=== PATIENT | female | born 1935 | race Caucasian/White ===

== ENCOUNTER 2016-10-02 14:30 | Inpatient (IN) | payer MEDICARE ==
[~2016-10-02] VITALS: Ht 147.3 cm; Wt 29.1 kg
[~2016-10-02 14:30] MED LIST: ATIVAN1 MG PO; CARTIA XT180 MG PO; CYCLOBENZAPRINE5 MG PO; DIFLUCAN150 MG PO; FLORAJEN3 CAPS460 MG PO; FOLATE0.4 MG PO; LASIX20 MG PO; LEVOTHYROXINE112 MCG PO; MUCINEX DM ER1 EAC1 PO; OMNICEF300 MG PO; PLAQUENIL200 MG PO; PREDNISONE5 MG PO; TESSALON PERLE100 MG PO; VITAMIN B-12500 MC1 PO; ZITHROMAX500 MG PO; ZYVOX600 MG PO
[2016-10-02 15:36] LABS: HEMATOCRIT 25.9 % (36.0-48.0); HEMOGLOBIN 8.1 g/dL (12-16); MCHC 31.3 g/dL (31.0-37.0); MCV 92.8 fL (80.0-100.0); RBC 2.79 10x6/uL (4.00-5.40); RDW 17.9 % (11.5-14.5); WBC 41.5 10x3/uL (4.8-10.8)
[2016-10-02 15:38] LABS: ALBUMIN 3.4 g/dL (3.4-5.0); ALKALINE PHOSPHATASE 198 U/L (46-116); ALT (SGPT) 26 U/L (10-68); BILIRUBIN - TOTAL 0.72 mg/dL (0.2-1.3); CALC OSMOLALITY 274 mosm/kg (275-300); CALCIUM 8.2 mg/dL (8.5-10.1); CARBON DIOXIDE 37.1 mmol/L (21.0-32.0); CHLORIDE - SERUM 96 mmol/L (98-107); CREATININE - SERUM 0.6 mg/dL (0.6-1.3); GLUCOSE 79 mg/dL (74-106); PLATELET COUNT 33 10x3/uL (130-400); POTASSIUM - SERUM 4.9 mmol/L (3.5-5.1); PROTEIN - SERUM 6.3 g/dL (6.4-8.2); SODIUM 137 mmol/L (136-145); UREA NITROGEN 17 mg/dL (7-18); eGFR NON AFRICAN AMERICAN > 90 mL/min (90-120)
[2016-10-02 15:49] LABS: PRO BNP 1994 pg/mL (0-450); THYROID STIMULATING HORMONE 9.51 uIU/mL (0.36-3.74)
[2016-10-02 15:53] LABS: TROPONIN-I < 0.017 ng/mL (0.000-0.060)
[2016-10-02 18:12] VITALS: BMI 14.8
[2016-10-02 18:57] LABS: LYMPHOCYTES 25 % (15-50); MONOCYTES 1 % (2-11); NEUTROPHILS 74 % (40-80); PLATELET ESTIMATE DECREASED
--- NOTE | 2016-10-02 19:35 | NUR ---
PT ARRIVED TO FLOOR FROM ER WITH HR OF 155 BP 82/44 AND O2 93% ON 2L PAGED DR VALENZUELA AND INFORMED HIM OF PT HR AND ORDERES RECIVED TO CONSULT CARDIOLOGY AND PAGEZainab TORRES RECIVED ORDER TO START PT ON 5MG/HR CARDIZEM DRIP AND TO WATCH BP IF LOW 70 SYSTOLIC THEN PAGE HIM STARTED DRIP AND MONITOR BP AT THIS TIME
[2016-10-02 20:00] VITALS: BP 83/48
--- NOTE | 2016-10-02 21:54 | NUR ---
PT UNABLE TO RECIVE BREATHING TREATMENT AT THIS TIME DUE TO HR 144 PT ON CARDIZEM DRIP AND BP SUSTANING WITH A SYSTOLIC OF AT LEAST 85 WILL CONTINUE TO MONITOR BP AND HR
--- NOTE | 2016-10-02 23:22 | NUR ---
HR DECREASING 128 PT BP 86/45 AT THIS TIME NO DISTRESS OBSERVED WILL MONITOR
[2016-10-03] VITALS (8 sets, daily range): BP systolic 97–126; BP diastolic 47–69; Ht 147.3 cm; Wt 29.1 kg
[2016-10-03 06:21] LABS: MCH 28.4 pg (26.0-34.0); MCHC 31.2 g/dL (31.0-37.0); MCV 91.3 fL (80.0-100.0); RBC 2.18 10x6/uL (4.00-5.40); WBC 30.3 10x3/uL (4.8-10.8)
[2016-10-03 06:22] LABS: HEMATOCRIT 19.9 % (36.0-48.0); HEMOGLOBIN 6.2 g/dL (12-16)
[2016-10-03 06:23] LABS: PLATELET COUNT 15 10x3/uL (130-400)
[2016-10-03 06:27] LABS: ALKALINE PHOSPHATASE 152 U/L (46-116); ALT (SGPT) 22 U/L (10-68); BILIRUBIN - TOTAL 0.66 mg/dL (0.2-1.3); CALCIUM 7.7 mg/dL (8.5-10.1); CARBON DIOXIDE 33.2 mmol/L (21.0-32.0); CHLORIDE - SERUM 97 mmol/L (98-107); CREATININE - SERUM 0.6 mg/dL (0.6-1.3); POTASSIUM - SERUM 4.6 mmol/L (3.5-5.1); PROTEIN - SERUM 5.6 g/dL (6.4-8.2); SODIUM 137 mmol/L (136-145); eGFR NON AFRICAN AMERICAN > 90 mL/min (90-120)
[2016-10-03 06:30] LABS: CALC OSMOLALITY 276 mosm/kg (275-300); GLUCOSE 57 mg/dL (74-106); UREA NITROGEN 27 mg/dL (7-18)
--- NOTE | 2016-10-03 06:30 | NUR ---
BLOOD STARTED ON PT AT THIS TIME WILL MONITOR HR AND BP DURING ADMINISTRATION CONSENT SIGNED AND TO CHART
[2016-10-03 06:42] LABS: LYMPHOCYTES 17 % (15-50); MONOCYTES 15 % (2-11); NEUTROPHILS 67 % (40-80); PLATELET ESTIMATE DECREASED
--- NOTE | 2016-10-03 07:40 | NUR ---
RECEIVED REPORT, [id number]. CHEST-1 ST UNIT OF BLOOD INFUSING, [id number], DENIES ANY NEEDS AT THIS TIME, CALL LIGHT IN REACH, BED IS LOW, SRX2
--- NOTE | 2016-10-03 14:10 | NUR ---
CM spoke with patient at the bedside. She was alert and oriented x3. She states she was at [facility] prior to admission. She plans to return at discharge. She states she was on isolation at [facility] and was not certain why. She was pleased w/ her care. Reports she is feeling better today. The patient stated she lived at [facility] prior to her illness and hospitalizations. Very pleasant. Thanked CM for visit. Denied any needs at present. TC to [facility]. LUCIANA spoke w/ Ema. The patient was admitted to a Medicare bed on 09/10/16. They are expecting the patient to return to facility. Patient's contact is Veronica Balbuena at [phone] or [phone]. CM to follow to assist w/ discharge. CM advised patient's primary nurse, Enma, about patient' statement regarding isolation. She said she had to have a private room and the nurses wore gowns. Enma will f/u w/ [facility].
--- NOTE | 2016-10-03 15:49 | NUR ---
PT VISITING WITH FAMILY, DENIES ANY NEEDS, CALL LIGHT IN REACH, BED ALARM IS ON
--- NOTE | 2016-10-03 17:43 | NUR ---
DIGOXIN 0.125 MG GIVEN SIVP PT TOLERATED WELL NAD NOTED
[2016-10-03 20:19] LABS: HEMATOCRIT 32.5 % (36.0-48.0); HEMOGLOBIN 10.9 g/dL (12-16); MCH 29.9 pg (26.0-34.0); MCHC 33.5 g/dL (31.0-37.0); RBC 3.65 10x6/uL (4.00-5.40); WBC 32.8 10x3/uL (4.8-10.8)
[2016-10-03 20:20] LABS: PLATELET COUNT 16 10x3/uL (130-400)
[2016-10-03 20:43] LABS: LYMPHOCYTES 12 % (15-50); MONOCYTES 4 % (2-11); NEUTROPHILS 84 % (40-80); PLATELET ESTIMATE DECREASED
--- NOTE | 2016-10-04 03:39 | NUR ---
PT LAYING IN BED EYES CLOSED NO DISTRESS OBSERVED CALL LIGHT IN REACH SRX2 BED LOW AND LOCKED IVP INFUSING CARDIZEM 5MG/HR TELEMETRY READING 112 ST AT THIS TIME
[2016-10-04 04:04] VITALS: BP 113/75
[2016-10-04 05:27] LABS: HEMATOCRIT 33.1 % (36.0-48.0); MCH 29.9 pg (26.0-34.0); MCHC 33.2 g/dL (31.0-37.0); MCV 89.9 fL (80.0-100.0); RBC 3.68 10x6/uL (4.00-5.40); RDW 16.3 % (11.5-14.5); WBC 29.6 10x3/uL (4.8-10.8)
[2016-10-04 05:28] LABS: PLATELET COUNT 15 10x3/uL (130-400)
[2016-10-04 05:34] LABS: ALKALINE PHOSPHATASE 134 U/L (46-116); ALT (SGPT) 18 U/L (10-68); BILIRUBIN - TOTAL 0.54 mg/dL (0.2-1.3); CALCIUM 8.2 mg/dL (8.5-10.1); CARBON DIOXIDE 32.8 mmol/L (21.0-32.0); CHLORIDE - SERUM 101 mmol/L (98-107); GLUCOSE 85 mg/dL (74-106); PROTEIN - SERUM 5.9 g/dL (6.4-8.2); SODIUM 139 mmol/L (136-145)
[2016-10-04 05:36] LABS: CALC OSMOLALITY 278 mosm/kg (275-300); CREATININE - SERUM 0.4 mg/dL (0.6-1.3); UREA NITROGEN 17 mg/dL (7-18); eGFR NON AFRICAN AMERICAN > 90 mL/min (90-120)
[2016-10-04 06:09] LABS: EOSINOPHILS 1 % (0-7); LYMPHOCYTES 11 % (15-50); MONOCYTES 3 % (2-11); NEUTROPHILS 67 % (40-80)
[2016-10-04 06:10] LABS: PLATELET ESTIMATE DECREASED; PLATELET MORPHOLOGY GIANT PLTS PRESENT
--- NOTE | 2016-10-04 07:00 | NUR ---
RECEIVED REPORT. ASSUMED CARE OF PATIENTS. CALL LIGHT WITHIN REACH. PATIENT IS ST 116 ON TELEMETRY. CARDIZEM INFUSING ORDERED. RESTING WELL WITH EYES CLOSED. RESP EVEN AND UNLABORED. NO ACUTE DISTRESS. FULL BED ALARM ON AT THIS TIME.
[2016-10-04 07:56] VITALS: BP 115/54
--- NOTE | 2016-10-04 11:17 | NUR ---
PLATELET INFUSION STARTED AT THIS TIME. NO DISTRESS.
[2016-10-04 11:31] VITALS: BP 132/60
[2016-10-04 11:37] VITALS: BP 108/60
--- NOTE | 2016-10-04 12:18 | NUR ---
PLATELETS COMPLETED TRANSFUSING AT 1215. PATIENT HAS NO S/S OF REACTION. RESTING IN BED, EASILY AROUSED. RESP EVEN AND UNLABORED. NO DISTRESS.
[2016-10-04 15:40] VITALS: BP 119/62
--- NOTE | 2016-10-04 16:00 | NUR ---
PATIENT WITH EYES OPEN. CALL LIGHT WITHIN REACH. NO DISTRESS. FAMILY AT BEDSIDE.
--- NOTE | 2016-10-04 18:10 | NUR ---
LINEN CHANGE, TURNED AND REPOSITIONED BY THIS OYSTER CULTURIST AND PHYSICAL THERAPIST CENTER MANAGER. PATIENT TURNED TO LEFT LATERAL SIDE. CALL LIGHT WITHIN REACH. NO DISTRESS.
--- NOTE | 2016-10-04 20:00 | NUR ---
RESTING IN BED. EYES CLOSED. RESPS EVEN/NONLABORED WITH O2 @ 3L/NC. CARDIZEM AT 5ML/HR INFUSING TO LEFT CHEST WALL PORT. PT ON ISOLATION FOR VRE OF URINE. TURNED EVERY 2 HOURS TO MAINTAIN OPTIMAL SKIN INTEGRITY AND CHECK FOR INCONTINENCE. SEE ASSESSMENT. CPCO.
[2016-10-04 20:57] VITALS: BP 131/52
--- NOTE | 2016-10-04 21:34 | NUR ---
HS MEDS GIVEN. READIED FOR BED. CALL LIGHT IN REACH. CARDIZEM DRIP INFUSING.
--- NOTE | 2016-10-04 23:07 | NUR ---
PERSONAL CARE PROVIDED AND PT NOW SAYS SHE IS GOING TO SLEEP. IV CARDIZEM @ 5ML/HR INFUSING. ST/109 PER TELEMETRY. ASSISTING PT TO TURN FROM SIDE TO SIDE. CPOC.
[2016-10-05 00:34] VITALS: BP 128/66
--- NOTE | 2016-10-05 02:19 | NUR ---
RESTING IN BED WITH NO DISTRESS. IV CARDIZEM INFUSING. ST PER TELEMETRY. CPOC.
[2016-10-05 04:31] VITALS: BP 114/58
--- NOTE | 2016-10-05 06:00 | NUR ---
PT CLEAN/DRY AND RESTING. IV CARDIZEM INFUSING AT 5ML/HR. STILL ST PER TELEMETRY. CPOC.
[2016-10-05 06:27] LABS: ALKALINE PHOSPHATASE 132 U/L (46-116); ALT (SGPT) 18 U/L (10-68); CALCIUM 7.9 mg/dL (8.5-10.1); CARBON DIOXIDE 33.6 mmol/L (21.0-32.0); CHLORIDE - SERUM 101 mmol/L (98-107); CREATININE - SERUM 0.4 mg/dL (0.6-1.3); GLUCOSE 93 mg/dL (74-106); SODIUM 141 mmol/L (136-145); eGFR NON AFRICAN AMERICAN > 90 mL/min (90-120)
[2016-10-05 06:30] LABS: CALC OSMOLALITY 279 mosm/kg (275-300); UREA NITROGEN 10 mg/dL (7-18)
[2016-10-05 07:07] LABS: HEMATOCRIT 33.9 % (36.0-48.0); HEMOGLOBIN 10.8 g/dL (12-16); MCH 29.6 pg (26.0-34.0); MCHC 31.9 g/dL (31.0-37.0); MCV 92.9 fL (80.0-100.0); RBC 3.65 10x6/uL (4.00-5.40); RDW 17.1 % (11.5-14.5); WBC 31.3 10x3/uL (4.8-10.8)
[2016-10-05 07:08] LABS: PLATELET COUNT 38 10x3/uL (130-400)
[2016-10-05 07:19] LABS: ANISOCYTOSIS OCC; EOSINOPHILS 1 % (0-7); HYPOCHROMASIA OCC; LYMPHOCYTES 17 % (15-50); MONOCYTES 19 % (2-11); NEUTROPHILS 49 % (40-80); PLATELET ESTIMATE DECREASED; ROULEAUX 1+
[2016-10-05 07:40] VITALS: BP 129/51
--- NOTE | 2016-10-05 08:05 | NUR ---
ASSESSMENT DONE. PT SLEEPING. EASILY AROUSED. DENIES NEEDS. DR. VALENZUELA HERE AND SAW PT. NO NEW ORDERS RECEIVED AT THIS TIME. WAS NOTIFIED OF PLT COUNT OF 38. THIS IS A CHRONIC PROBLEM AND DR. ALBARRAN IS ON PT'S CASE. CALL LIGHT WITH IN REACH. WILL CONT. TO MONITOR.
--- NOTE | 2016-10-05 09:29 | NUR ---
RESTS IN ISOLATION ROOM. IV PATENT. CALL LIGHT IN REACH. WILL MONITOR NEEDS.
--- NOTE | 2016-10-05 09:29 | NUR ---
Nutrition follow-up: Diet: Low sodium PO intake ~40% of meals Labs reviewed +BM Wt: 74# PO intake is still poor. Nutritional supplements ordered. Will continue to encourage increased po intake Recommend liberalizing diet to regular as tolerated due to poor po intake RDN following.
[2016-10-05 11:48] VITALS: BP 105/49
[2016-10-05 16:18] VITALS: BP 112/55
[2016-10-05 16:56] LABS: APPEARANCE CLEAR (CLEAR); BACTERIA FEW /hpf (NONE SEEN); BILIRUBIN NEGATIVE (NEGATIVE); COLOR DK YELLOW (YELLOW); EPITHELIAL CELLS 0-5 /hpf (0-5); GLUCOSE NEGATIVE (NEGATIVE); KETONE NEGATIVE (NEGATIVE); LEUKOCYTE ESTERASE TRACE (NEGATIVE); MUCUS >1+ /lpf (NONE SEEN); NITRITE NEGATIVE (NEGATIVE); PROTEIN TRACE mg/dL (NEGATIVE); RED CELLS - URINE 0-5 /hpf (0-5); SPECIFIC GRAVITY 1.015 (1.005-1.020); UROBILINOGEN NORMAL (NORMAL)
--- NOTE | 2016-10-05 17:57 | NUR ---
PT SITTING UP IN BED WATCHING TV. NO DISTRESS NOTED. DENIES NEEDS. CALL LIGHT WITH IN REACH. WILL CONT. TO MONITOR.
--- NOTE | 2016-10-05 20:00 | NUR ---
RESTING IN BED AND WATCHING TV. ALERT/ORIENTED. LEFT CHEST WALL PORT. SR PER TELEMETRY. MIN PATENT TO BEDSIDE DRAIN BAG. SEE ASSESSMENT. CPOC.
[2016-10-05 22:01] VITALS: BP 122/54
--- NOTE | 2016-10-05 22:24 | NUR ---
HS MEDS GIVEN. NEW BAG OF CARDIZEM AT 5ML/HR STARTED. REMOVED OLD DRESSING TO LEFT OUTER KNEE/UPPER BONE AREA AND CLEANSED AREA THAT IS AN ABRASION/SKIN TEAR THAT PT SAID HAS BEEN HIT SEVERAL TIMES KEEPING IT FROM HEALING. APPLIED WET TO DRY DRESSING BACK AND SECURED WITH TEGADERM. WILL MONITOR.
[2016-10-06 05:33] VITALS: BP 136/62
--- NOTE | 2016-10-06 07:53 | NUR ---
0715-AM ROUNDING MADE, PATIENT IS RESTING WITH EYES CLOSED. RESP ARE EVEN AND NON LABORED. PATIENT IS IN CONTACT ISOLATION FOR VRE URINE PER NIGHT NURSE. RENAY BRAUN IS SEEING INFUSING TO LEFT IP AT 5 CC/HR. ON HEART MONITOR SHOWING SR, HR 72. ON ROOM AIR. MIN CATH SEEN WITH YELLOW URINE. WILL CONTINUE TO MONITOR.
[2016-10-06 08:00] VITALS: BP 140/71
--- NOTE | 2016-10-06 10:08 | NUR ---
MEPILEX LITE X 2 PLACED TO SPINE AREA OVER THE REDDENED AREAS. MEPLIEX SMALL SACRUM PLACED ON RED AREA OF COCCYX. ALL THESE ARE DATED.
[2016-10-06 12:00] VITALS: BP 116/48
--- NOTE | 2016-10-06 14:32 | NUR ---
NM TO CALL AND STATE THEY NEED TO ORDER THE DOSE AND TEST WILL BE DONE IN THE AM. THERE IS NO RESTRICTIONS PER THEM.
--- NOTE | 2016-10-06 14:48 | NUR ---
NM TO CALL BACK AND TELL ME THAT THE DOSE WILL BE HERE TODAY FOR SCAN. THIS IS RELAYED TO THE PATIENT.
[2016-10-06 15:53] LABS: HEMATOCRIT 35.2 % (36.0-48.0); MCH 29.9 pg (26.0-34.0); MCHC 31.3 g/dL (31.0-37.0); MCV 95.7 fL (80.0-100.0); RBC 3.68 10x6/uL (4.00-5.40); RDW 17.4 % (11.5-14.5); WBC 25.4 10x3/uL (4.8-10.8)
[2016-10-06 15:54] LABS: PLATELET COUNT 37 10x3/uL (130-400)
[2016-10-06 16:00] VITALS: BP 120/62
--- NOTE | 2016-10-06 16:28 | NUR ---
1625-TO NM VIA BED FOR SCAN.
[2016-10-06 16:43] LABS: LYMPHOCYTES 17 % (15-50); MONOCYTES 2 % (2-11); NEUTROPHILS 74 % (40-80); PLATELET ESTIMATE DECREASED
--- NOTE | 2016-10-06 16:48 | NUR ---
RETURNS FROM NM.
[2016-10-06 20:00] VITALS: BP 114/56
--- NOTE | 2016-10-06 21:17 | NUR ---
HS MEDS GIVEN WITH FRESH ICE WATER.
--- NOTE | 2016-10-06 23:45 | NUR ---
RESTING IN BED WITH EYES CLOSED, RESPERATIONS EVEN, NO S/S DISTRESS NOTED.
[2016-10-07] VITALS: BP 129/71; BP 142/59
--- NOTE | 2016-10-07 00:26 | NUR ---
ASSISTANT CHIEF ENGINEER AT BEDSIDE TO OBTAIN VITALS, CALL LIGHT IN REACH. WILL CONTINUE WITH PLAN OF CARE.
[2016-10-07 08:00] VITALS: BP 115/80
--- NOTE | 2016-10-07 11:00 | NUR ---
ALERT AND ORIENTED X4. SITTING UP IN BED. MIN DRAINING AT BEDSIDE. CARDIZEM DRIP DISCONTINUED PER ORDER. UNCONTROLLED A-FIB 126bpm ON TELEMETRY. DENIES SOB OR PAIN. CONTINUE PLAN OF CARE AND SAFETY PRECAUTIONS.
--- NOTE | 2016-10-07 11:19 | NUR ---
Nutrition Follow Up: Chart reviewed. Diet: Regular PO Intake: 50% (9 meal avg) I>O +BM 10/03/16 - no BM x 5 days Wt loss 3# since admit Meds: Prednisone, Folic Acid Labs noted Pt's appetite is slowly improving. Will send Ensure with meals. Rec continue current diet. Pt may benefit from an appetite stimulant. RD following.
[2016-10-07 12:00] VITALS: BP 101/51
--- NOTE | 2016-10-07 18:32 | NUR ---
SLEEPING IN BED. NO CHANGE. REMAINS FREE FROM INJURY. UNCONTROLLED A-FIB ON TELEMETRY. BED LOCKED AND LOW. CALL LIGHT IN REACH. TWO SIDERAILS UP. BED ALARM ON.
--- NOTE | 2016-10-07 19:05 | NUR ---
AWAKE TALKING ON PHONE. DENIES PAIN OR ANY NEEDS. IN CONTACT ISOLATION FOR VRE IN URINE. L CHEST IP INTACT SL. 02 AT 2L. RR 18 EVEN U/L. TELEMETRY SHOWS 124 UNCAFIB. ORIENTED TO CALL LIGHT FOR ANY NEEDS OR DISCOMFORTS.
--- NOTE | 2016-10-07 21:00 | NUR ---
ADMIN SCHED MEDS WITH SIPS OF WATER. NO OTHER NEEDS VOICED.
[2016-10-07 22:35] VITALS: BP 129/72
[2016-10-08 01:32] VITALS: BP 112/64
[2016-10-08 05:59] VITALS: BP 125/73
--- NOTE | 2016-10-08 06:11 | NUR ---
AWAKE. ADMIN SCHED MEDS WITH SIPS OF WATER. ASSISTED WITH REPOSITIONING UP IN BED.
[2016-10-08 07:41] LABS: HEMATOCRIT 36.5 % (36.0-48.0); HEMOGLOBIN 11.5 g/dL (12-16); MCH 29.7 pg (26.0-34.0); MCHC 31.5 g/dL (31.0-37.0); MCV 94.3 fL (80.0-100.0); RBC 3.87 10x6/uL (4.00-5.40); RDW 17.5 % (11.5-14.5); WBC 31.4 10x3/uL (4.8-10.8)
--- NOTE | 2016-10-08 07:42 | NUR ---
AM ROUNDING- PT LAYING IN BED ON LEFT SIDE SLEEPING. NO NEED AT THIS TIME. IN CONTACT ISOLATION FOR VRE IN URINE. IV SEEN TO LEFT CHEST WITH INFUSAPORT, SALINE LOCKED AND PATENT. ON 02 VIA NC AT 2L. MIN WITH CONCENTRATED URINE SEEN. UP WIHT ASSIST. PER REPORT FROM BILL POSTER INSTALLER NURSE CHERYL PT HAS HX OF THROMBOCYTOPENIA. DNR. ON MONITOR SHOWING UNCONTROLLED A-FIB, HR 112. 0744- LAB CALLED WITH [facility]. PTS PLATELET COUNT IS 20. CRITICAL LAB SHEET FILLED OUT. WILL CONTINUE TO MONITOR.
[2016-10-08 07:43] LABS: PLATELET COUNT 20 10x3/uL (130-400)
[2016-10-08 07:59] LABS: CALC OSMOLALITY 281 mosm/kg (275-300); CARBON DIOXIDE 35.9 mmol/L (21.0-32.0); CHLORIDE - SERUM 101 mmol/L (98-107); CREATININE - SERUM 0.4 mg/dL (0.6-1.3); DIGOXIN 2.01 ng/mL (0.90-2.00); GLUCOSE 86 mg/dL (74-106); POTASSIUM - SERUM 3.5 mmol/L (3.5-5.1); SODIUM 141 mmol/L (136-145); UREA NITROGEN 19 mg/dL (7-18); eGFR NON AFRICAN AMERICAN > 90 mL/min (90-120)
[2016-10-08 08:00] VITALS: BP 134/68
[2016-10-08 08:22] LABS: EOSINOPHILS 1 % (0-7); LYMPHOCYTES 17 % (15-50); MONOCYTES 1 % (2-11); NEUTROPHILS 66 % (40-80); PLATELET ESTIMATE DECREASED
[2016-10-08 12:33] VITALS: BP 128/78
[2016-10-08 16:00] VITALS: BP 112/64
--- NOTE | 2016-10-08 16:04 | NUR ---
CALLED TO PTS ROOM FOR PT C/O MIN CATHETER LEAKING. CHECKED BALLOON, PULLED OUT 10CC OF FLUID AND PLACED 10CC BACK INTO BALLOON. FLUSHED CATHETER WITH 20CC OF SALINE FLUSH WITH ASSISTANCE FROM SABINE WALDROP. CHANGED PT LINEN AND INFORMED HER TO NOTIFY STAFF IT IT HAPPENS AGAIN. WILL CONTINUE TO MONITOR.
--- NOTE | 2016-10-08 17:09 | NUR ---
CHANGED PTS DRESSING TO LOWER LEFT LEG AREA. SKIN TEAR SEEN WITH DRIED BLOOD. APPERARS TO BE HEALING. MEASUREMENTS ARE 2CM X 0.5CM. COVERED WITH 2X2 GAUZE PADS AND SECURED WITH TEGADERM. WILL CONTINUE TO MONITOR.
--- NOTE | 2016-10-08 18:26 | NUR ---
PT SITTING UP IN BED READING A MAGAZINE. DENIES ANY NEED AT THIS TIME. WILL CONTINUE TO MONITOR.
--- NOTE | 2016-10-08 19:10 | NUR ---
ALERT/AWAKE DENIES PAIN OR ANY NEEDS. L CHEST IP INTACT SL. MIN INTACT/PATENT. ORIENTED TO CALL LIGHT FOR ANY NEEDS.
[2016-10-08 20:30] VITALS: BP 109/66
--- NOTE | 2016-10-08 23:19 | NUR ---
ASSISTED WITH REPOSITIONING TO RIGHT SIDE WITH PILLOW TO BACK. REQUESTED LIGHTS OFF TO SLEEP.
[2016-10-09 00:30] VITALS: BP 137/60
--- NOTE | 2016-10-09 02:30 | NUR ---
RECEIVING RESP UPDRAFT TX. DENIES ANY NEEDS OR DISCOMFORTS.
[2016-10-09 04:30] VITALS: BP 142/84
[2016-10-09 07:09] LABS: HEMATOCRIT 34.1 % (36.0-48.0); HEMOGLOBIN 10.8 g/dL (12-16); MCH 29.9 pg (26.0-34.0); MCHC 31.7 g/dL (31.0-37.0); MCV 94.5 fL (80.0-100.0); RBC 3.61 10x6/uL (4.00-5.40); RDW 17.5 % (11.5-14.5); WBC 33.1 10x3/uL (4.8-10.8)
[2016-10-09 07:10] LABS: PLATELET COUNT 26 10x3/uL (130-400)
[2016-10-09 07:12] LABS: EOSINOPHILS 2 % (0-7); LYMPHOCYTES 19 % (15-50); MONOCYTES 2 % (2-11); NEUTROPHILS 65 % (40-80)
[2016-10-09 07:13] LABS: CALC OSMOLALITY 279 mosm/kg (275-300); CALCIUM 7.9 mg/dL (8.5-10.1); CARBON DIOXIDE 35.2 mmol/L (21.0-32.0); CHLORIDE - SERUM 101 mmol/L (98-107); CREATININE - SERUM 0.4 mg/dL (0.6-1.3); GLUCOSE 77 mg/dL (74-106); PLATELET ESTIMATE DECREASED; POTASSIUM - SERUM 3.6 mmol/L (3.5-5.1); SODIUM 140 mmol/L (136-145); UREA NITROGEN 18 mg/dL (7-18); eGFR NON AFRICAN AMERICAN > 90 mL/min (90-120)
[2016-10-09 07:20] LABS: DIGOXIN 2.54 ng/mL (0.90-2.00)
--- NOTE | 2016-10-09 07:45 | NUR ---
RESTING QUIETLY NAD NOTED
[2016-10-09 09:00] VITALS: BP 109/65
[2016-10-09] MEDS ORDERED: PREDNISONE20 MG PO (11:55)
[2016-10-09] MEDS ORDERED: PROTONIX40 MG PO (11:55)
[2016-10-09 11:58] VITALS: BP 114/56
--- NOTE | 2016-10-09 14:18 | NUR ---
IV DCD. IP FLUSHED. MIN CATH DCD. AWAITING TRANSPORTATION
--- NOTE | 2016-10-09 18:45 | NUR ---
late Entry 1200 DR Vargas advised patient could be discharged back to facility. TC to [facility]. CM spoke with Nicol. She had to notify public service administrator for patient to be accepted. Cm received CB w/ multiple questions regarding transportation, the port, oxygen and medications. Cm advised them to speak w/ DR Vargas. Sania ,the primary nurse, had provided report. Port was flushed w/ Heparin. the patient has been on oxygen via n/c at 1.5- 2/l min. She was on room air the afternoon. CM faxed discharge medication list. Cm finally received acceptance. [place] arranged transportation. Will need to follow up w/ billing on Monday regarding type of bed patient into which the patient is being admitted. Chart copy provided.
== END 2016-10-09 15:00 | DRG 308 ==
LOC: D.ER 14:30 → D.M2 17:32 → D.SDCHOLD 10-05 15:11 → D.M2 10-09 15:00
PROVIDERS: Family Medicine; Internal Medicine Hematology & Oncology; ADMIT Family Medicine
DX: I47.1 Supraventricular tachycardia (principal); E43 Unspecified severe protein-calorie malnutrition; Z68.1 Body mass index [BMI] 19.9 or less, adult; D46.9 Myelodysplastic syndrome, unspecified; I95.9 Hypotension, unspecified; M32.9 Systemic lupus erythematosus, unspecified; K21.9 Gastro-esophageal reflux disease without esophagitis; I10 Essential (primary) hypertension; I25.10 Atherosclerotic heart disease of native coronary artery without angina pectoris; E03.9 Hypothyroidism, unspecified; D69.6 Thrombocytopenia, unspecified; Z66 Do not resuscitate; M81.0 Age-related osteoporosis without current pathological fracture; Z86.73 Personal history of transient ischemic attack (TIA), and cerebral infarction without residual deficits; Z87.891 Personal history of nicotine dependence

== ENCOUNTER 2016-11-22 10:16 | Outpatient (CLI) | payer MEDICARE ==
[~2016-11-22] VITALS: Ht 147.3 cm; Wt 27.3 kg
[~2016-11-22 10:16] MED LIST changes: +PREDNISONE20 MG PO; +PROTONIX40 MG PO
[2016-11-22 12:21] VITALS: BP 123/57; Ht 147.3 cm; Wt 27.3 kg
--- NOTE | 2016-11-22 17:49 | NUR ---
1340- LEFT CHEST INFUSAPORT ACCESSED WITH STERILE TECHNIQUE. PT TOLERATED. FINISHED WITH LUNCH AT THIS TIME. 1345- FIRST PRBC UNIT TRANSFUSING. WILL MONITOR.
--- NOTE | 2016-11-22 18:34 | NUR ---
1445 RECEIVED PT FROM ELIZABETH NGUYEN RN. PT RECEIVING BLOOD VIA INFUSAPORT AT 150/CC/HR. DENIES PROBLEMS, DENIES REQUESTS AT PRESENT. O2 AT 3L/NC.SEE MONITORING VS SHEET. 1640 BLOOD HAS COMPLETED, DENIES PROBLEMS, LINE BEING FLUSHED WITH NS. 1648 2ND UNIT CHECKED AT BEDSIDE BY THIS NURSE AND ELIZABETH NGUYEN RN INITIATED BY ALARIS PUMP AT 50/CC/HR 1710 RATE INCREASED TO 125/CC/HR DENIES NEEDS REG DIET ORDERED. 1725 RATE INCREASED TO 175/CC/HR DENIES NEEDS NO PROBLEMS NOTED, BLOOD PATENT VIA PORT. [address] [place] CALLED TO CHECK ON PT. ARRANGEMENT MADE FOR TRANSPORTATION BACK TO NURSING FACILITY. REG SUPPER DIET SERVED. PT. DENIES PROBLEMS.
--- NOTE | 2016-11-22 20:49 | NUR ---
1944 LINE HAS FLUSHED, PORT FLUSHED WITH NS AND HEPARIN PER LUCILA GARCIA DC'D INTACT 1999 PT DRESSED AND AT DESK AWAITING [facility] [address] [facility] TRANSPORT[facility] HAS ARRIVED, TO THEIR FACILITY BY BUS, PT IN HER OWN WC, O2 AT 3L NC. PT. DENIED PROBLEMS WITH TRANSFUSION.
== END 2016-11-22 20:30 | disposition home or self-care (01) ==
LOC: D.OPS
DX: D64.9 Anemia, unspecified (principal)

== ENCOUNTER 2016-12-13 10:13 | Inpatient (IN) | payer MEDICARE ==
[~2016-12-13] VITALS: Ht 147.3 cm; Wt 27.2 kg
[2016-12-13 11:09] LABS: ALBUMIN 2.9 g/dL (3.4-5.0); ALKALINE PHOSPHATASE 130 U/L (46-116); ALT (SGPT) 21 U/L (10-68); BILIRUBIN - TOTAL 0.36 mg/dL (0.2-1.3); CALC OSMOLALITY 286 mosm/kg (275-300); CALCIUM 8.4 mg/dL (8.5-10.1); CHLORIDE - SERUM 103 mmol/L (98-107); CREATININE - SERUM 0.3 mg/dL (0.6-1.3); GLUCOSE 106 mg/dL (74-106); POTASSIUM - SERUM 3.7 mmol/L (3.5-5.1); PRO BNP 1338 pg/mL (0-450); PROTEIN - SERUM 5.6 g/dL (6.4-8.2); SODIUM 144 mmol/L (136-145); TROPONIN-I < 0.017 ng/mL (0.000-0.060); UREA NITROGEN 13 mg/dL (7-18); eGFR NON AFRICAN AMERICAN > 90 mL/min (90-120)
[2016-12-13 11:17] LABS: HEMATOCRIT 28.8 % (36.0-48.0); HEMOGLOBIN 9.1 g/dL (12-16); MCH 30.1 pg (26.0-34.0); MCHC 31.6 g/dL (31.0-37.0); MCV 95.4 fL (80.0-100.0); RBC 3.02 10x6/uL (4.00-5.40); RDW 18.1 % (11.5-14.5); WBC 35.7 10x3/uL (4.8-10.8)
[2016-12-13 11:18] LABS: PLATELET COUNT 34 10x3/uL (130-400)
[2016-12-13 11:41] LABS: ANISOCYTOSIS OCC; LYMPHOCYTES 10 % (15-50); MONOCYTES 9 % (2-11); NEUTROPHILS 62 % (40-80); PLATELET ESTIMATE DECREASED
[2016-12-13] MEDS ORDERED: PREDNISONE5 MG PO (16:17)
[2016-12-13] MEDS ORDERED: PLAQUENIL200 MG PO (16:18)
[2016-12-13] MEDS ORDERED: CYCLOBENZAPRINE5 MG PO (16:26)
[2016-12-13 16:30] VITALS: BP 113/54
[2016-12-13 16:38] VITALS: BP 131/56; BMI 12.5
--- NOTE | 2016-12-13 17:32 | NUR ---
STATUS REMAINS UNCHGD AT PRESENT.
--- NOTE | 2016-12-13 19:30 | NUR ---
RECIEVED SHIFT REPORT. PT IS LYING IN BED. ALERT AND ORIENTED AND ABLE TO VERBALIZE NEEDS. IV IS PATENT AND SALINE LOC AT THIS TIME. O2 @ 2 PER NASAL CANNULA. PT DENIES ANY PAIN AT THIS TIME. PT REQUIRES ASSISTANCE TURNING IN BED FOR COMFORT AND SKIN CARE. NO NEEDS ARE VERBALIZED AT THIS TIME. WILL CONTINUE TO MONITOR. SIDE RAILS ARE UP X 2. BED IS IN LOWEST POSITION. CALL LIGHT IS WITHIN REACH.
[2016-12-13 21:00] VITALS: BP 114/63
--- NOTE | 2016-12-13 21:36 | NUR ---
SHIFT ASSESSMENT COMLETED. NIGHT MEDS GIVEN WITH NO PROBLEMS. NO NEEDS ARE VOICED. WILL MONITOR. SIDE RAILS X 2. BED LOW. CALL LIGHT IN REACH.
[2016-12-14 01:00] VITALS: BP 122/60
[2016-12-14 05:00] VITALS: BP 134/73
[2016-12-14 06:57] LABS: CALC OSMOLALITY 286 mosm/kg (275-300); CALCIUM 8.4 mg/dL (8.5-10.1); CHLORIDE - SERUM 103 mmol/L (98-107); GLUCOSE 80 mg/dL (74-106); POTASSIUM - SERUM 3.8 mmol/L (3.5-5.1); SODIUM 145 mmol/L (136-145); UREA NITROGEN 11 mg/dL (7-18)
[2016-12-14 06:59] LABS: CREATININE - SERUM 0.4 mg/dL (0.6-1.3); eGFR NON AFRICAN AMERICAN > 90 mL/min (90-120)
--- NOTE | 2016-12-14 07:30 | NUR ---
RECIEVED PT DURING WALKING ROUNDS. PT RESTING COMFORTABLY IN BED WITH NO COMPLAINTS OF PAIN OR DISCOMFORT AT THIS TIME. ASSESSMENT DONE PER FLOWSHEET. BED IN LOW POSITION AND CALL LIGHT WITHIN REACH. WILL CONTINUE TO MONITOR.
[2016-12-14 07:39] LABS: HEMATOCRIT 30.3 % (36.0-48.0); HEMOGLOBIN 9.1 g/dL (12-16); MCH 29.3 pg (26.0-34.0); MCV 97.4 fL (80.0-100.0); RBC 3.11 10x6/uL (4.00-5.40); RDW 18.5 % (11.5-14.5); WBC 44.7 10x3/uL (4.8-10.8)
[2016-12-14 07:41] LABS: PLATELET COUNT 36 10x3/uL (130-400)
[2016-12-14 08:00] LABS: EOSINOPHILS 2 % (0-7); LYMPHOCYTES 11 % (15-50); MONOCYTES 3 % (2-11); NEUTROPHILS 70 % (40-80); PLATELET ESTIMATE DECREASED
[2016-12-14 08:01] LABS: ANISOCYTOSIS 1+; POIKILOCYTOSIS 1+; SCHISTOCYTES OCC
--- NOTE | 2016-12-14 08:25 | NUR ---
PT COMPLAINS OF HAVING SOME DIFFICULTY BREATHING, O2 SAT 99% ON 2L. HELPED PT SIT UP AT THIS TIME AND TAKE DEEP BREATHS. PT WAS ABLE TO SLOW BREATHING AND HAVE RELIEF. BED IN LOW POSITION AND CALL LIGHT WITHIN REACH. WILL CONTINUE TO MONITOR.
--- NOTE | 2016-12-14 10:38 | NUR ---
CHANGED DRESSING TO PT BOTTOM AT THIS TIME. PT TOLERATED WELL. BED IN LOW POSITION AND CALL LIGHT WITHIN REACH. WILL CONTINUE TO MONITOR.
[2016-12-14 11:04] VITALS: BP 118/64
[2016-12-14 11:08] VITALS: Ht 147.3 cm; Wt 27.2 kg
--- NOTE | 2016-12-14 11:50 | NUR ---
CALL PLACED TO DR. SCHMIDT AT THIS TIME DUE TO PT EXPERIENCING PAIN IN HER BACK AND BUTTOCK. RECIEVED ORDER FOR TYLENOL. WILL ADMINISTER PER ORDER.
[2016-12-14 11:52] VITALS: BP 114/46
--- NOTE | 2016-12-14 16:00 | NUR ---
Patient Name: BONNY HERNÁNDEZ Admission Status: ER Accout number: [id number] Admission Date: 12-13-2016 : 1936 Admission Diagnosis:UNSPECIFIED BACTERIAL PNEUMONIA Attending: ESTHER Current LOS: 1 Anticipated DC Date: 12-16-2016 Planned Disposition: Nursing Facility [facility] Cert Primary Insurance: MEDICARE A & B Discharge Planning Comments: CM MET WITH PATIENT REGARDING D/C NEEDS AND PLANS. PATIENT STATED SHE IS FROM [facility]. PATIENT IS ON 02 AT FACILITY AND USES A WALKER (VERY LITTLE) AND A WHEELCHAIR (MOST OF TIME) PER FACILITY. PATIENTS PCP IS DR. VALENZUELA AND PHARMACY IS [facility]. PATIENT WILL RETURN THERE AT DISCHARGE. CM WILL CONTINUE TO FOLLOW PATIENT WITH D/C NEEDS AND PLANS. PCP DR. VALENZUELA [facility] JOANN (DAUGHTER) [phone] Clarification Operator: Elvie Coreas How many steps to enter\exit or inside your home? 0 0 * PCP DR. VALENZUELA 0 * [facility] 0 * Preadmission Environment Refrigerating Oiler Usp 0 * Facility Name [facility] 0 * ADLs Partial Dependent 0 * Partial ADLs (Assistance needed) Ambulation Bathing Dressing Medication Management Toileting Transfers 0 * Equipment Bedside [facility] Bed Oxygen Shower Chair Walker Wheelchair 0 * List name and contact numbers for known caregivers / representatives who currently or will assist patient after discharge: JOANN (DAUGHTER) [phone] 0 * Community resources currently utilized None 0 * Additional services required to return to the preadmission environment? Yes 0 * Can the patient safely return to the preadmission environment? Yes 0 * Has this patient been hospitalized within the prior 30 days at any hospital? No 0 Grand Total: 0
[2016-12-14 16:35] VITALS: BP 162/52
--- NOTE | 2016-12-14 16:48 | NUR ---
LYING IN BED,WITHOUT DISTRESS.DOOR OPEN,CALL LIGHT IN REACH
[2016-12-14 20:48] VITALS: BP 122/45
[2016-12-15 00:18] VITALS: BP 139/59
[2016-12-15 04:27] VITALS: BP 143/47
[2016-12-15 07:52] VITALS: BP 144/58
--- NOTE | 2016-12-15 08:00 | NUR ---
WALKING ROUNDS,WITHOUT DISTRESS.CALL LIGHT IN REACH
[2016-12-15 08:02] LABS: HEMATOCRIT 27.4 % (36.0-48.0); HEMOGLOBIN 8.6 g/dL (12-16); MCH 29.7 pg (26.0-34.0); MCHC 31.4 g/dL (31.0-37.0); MCV 94.5 fL (80.0-100.0); PLATELET COUNT 34 10x3/uL (130-400); RDW 18.1 % (11.5-14.5); WBC 46.7 10x3/uL (4.8-10.8)
[2016-12-15 08:09] LABS: CALC OSMOLALITY 285 mosm/kg (275-300); CALCIUM 8.1 mg/dL (8.5-10.1); CARBON DIOXIDE 38.9 mmol/L (21.0-32.0); CHLORIDE - SERUM 100 mmol/L (98-107); CREATININE - SERUM 0.4 mg/dL (0.6-1.3); GLUCOSE 118 mg/dL (74-106); POTASSIUM - SERUM 3.7 mmol/L (3.5-5.1); SODIUM 143 mmol/L (136-145); UREA NITROGEN 13 mg/dL (7-18); eGFR NON AFRICAN AMERICAN > 90 mL/min (90-120)
[2016-12-15 08:42] LABS: EOSINOPHILS 1 % (0-7); LYMPHOCYTES 18 % (15-50); MICROCYTOSIS 1+; MONOCYTES 5 % (2-11); NEUTROPHILS 67 % (40-80); PLATELET ESTIMATE DECREASED; TEAR DROP CELLS 1+
[2016-12-15 08:43] LABS: POLYCHROMASIA 1+; STOMATOCYTES OCC
--- NOTE | 2016-12-15 09:00 | NUR ---
0ASSESSMENT PER FLOW SHEET.PT WITHOUT DISTRESS.DRESSING PLACED ON SPINE WHERE REDNESS NOTED.PT WITHOUT DISTRESS.MONITOR
--- NOTE | 2016-12-15 11:58 | NUR ---
HAS BEEN UP IN CHAIR MOST OF MORNING.REMAINS WITHOUT DISTRESS.
[2016-12-15 12:21] VITALS: BP 114/61
[2016-12-15 15:48] VITALS: BP 116/50
--- NOTE | 2016-12-15 17:07 | NUR ---
REMAINS WITHOUT NEEDS.SITTING UP IN BED.MONITOR
--- NOTE | 2016-12-15 18:44 | NUR ---
REMAINS WITHOUT NEEDS,WITHOUT DISTRESS.CONT PLAN OF CARE
[2016-12-15 20:00] VITALS: BP 145/67
[2016-12-16] VITALS: BP 144/74
[2016-12-16 04:00] VITALS: BP 157/75
--- NOTE | 2016-12-16 07:30 | NUR ---
REPORT RECEIVED FROM SABINE MCKEON. CALL LIGHT IN REACH.
[2016-12-16 08:06] LABS: HEMATOCRIT 27.2 % (36.0-48.0); HEMOGLOBIN 8.6 g/dL (12-16); MCH 30.1 pg (26.0-34.0); MCHC 31.6 g/dL (31.0-37.0); MCV 95.1 fL (80.0-100.0); RBC 2.86 10x6/uL (4.00-5.40); RDW 18.5 % (11.5-14.5); WBC 46.3 10x3/uL (4.8-10.8)
[2016-12-16 08:09] LABS: CALC OSMOLALITY 290 mosm/kg (275-300); CALCIUM 7.9 mg/dL (8.5-10.1); CARBON DIOXIDE 39.9 mmol/L (21.0-32.0); CHLORIDE - SERUM 104 mmol/L (98-107); CREATININE - SERUM 0.4 mg/dL (0.6-1.3); GLUCOSE 120 mg/dL (74-106); PLATELET COUNT 33 10x3/uL (130-400); SODIUM 145 mmol/L (136-145); UREA NITROGEN 15 mg/dL (7-18); eGFR NON AFRICAN AMERICAN > 90 mL/min (90-120)
[2016-12-16 08:18] LABS: BASOPHILS 1 % (0.0-2.0); EOSINOPHILS 2 % (0-7); LYMPHOCYTES 11 % (15-50); MONOCYTES 5 % (2-11); NEUTROPHILS 68 % (40-80)
[2016-12-16 08:19] LABS: PLATELET ESTIMATE DECREASED
[2016-12-16 08:20] LABS: SPHEROCYTES OCC; STOMATOCYTES 1+; TEAR DROP CELLS 1+
[2016-12-16 08:21] LABS: POLYCHROMASIA OCC
[2016-12-16 08:55] VITALS: BP 110/76
--- NOTE | 2016-12-16 09:20 | NUR ---
NO NEEDS VOICED AT THIS TIME. CALL LIGHT IN REACH.
--- NOTE | 2016-12-16 11:43 | NUR ---
ASSESSMENT COMPLETED. AM MEDS ADMINISTERED. CALL LIGHT IN REACH. CALLED MATERIALS FOR SCD MACHINE. ONELIA MAT ALARM ON. CALL LIGHT IN REACH. WILL CONTINUE WITH PLAN OF CARE.
[2016-12-16 11:58] VITALS: BP 150/61
--- NOTE | 2016-12-16 13:00 | NUR ---
Nutrition Follow Up: Pt is eating 60% meal avg on a Regular diet. She is receiving Ensure with meals. Wt stable. +BM 12/15/16. Meds noted including Prednisone. Labs noted. Pt with good po intake at this time. Rec continue current diet, supplement regimen. RD following.
--- NOTE | 2016-12-16 13:50 | NUR ---
DENIES NEEDS AT THIS TIME. CALL LIGHT IN REACH.
[2016-12-16 14:56] VITALS: BP 141/57
--- NOTE | 2016-12-16 15:23 | NUR ---
LYING IN BED,WITHOUT DISTRESS.CALL LIGHT IN REACH
--- NOTE | 2016-12-16 17:50 | NUR ---
EVENING MEDS ADMINISTERED. CALL LIGHT IN REACH.
--- NOTE | 2016-12-16 19:58 | NUR ---
DIA IVPB. NO OTHER CHANGES IN INITIAL ASSESSMENT. ONELIA MAT ALARM ON. CALL LIGHT IN REACH. WILL CONTINUE WITH PLAN OF CARE.
[2016-12-16 20:00] VITALS: BP 106/59
--- NOTE | 2016-12-16 20:01 | NUR ---
DIA IVPB. NO OTHER CHANGES IN INITIAL ASSESSMENT. ONELIA MAT ALARM ON. CALL LIGHT IN REACH. WILL CONTINUE WITH PLAN OF CARE.
--- NOTE | 2016-12-16 20:20 | NUR ---
ASSESSMENT COMPLETED, NO ACUTE DISTRESS NOTED, DENIES PAIN OR NEEDS AT THIS TIME, ONELIA ALARM ON, SR'S UP X2, CL IN REACH, WILL MONITOR
--- NOTE | 2016-12-16 21:35 | NUR ---
MEDS GIVEN PER DEC ALONG WITH PRN TYLENOL FOR C/O BACK PAIN 07/18, ARIANNA WELL, FALL PRECAUTIONS IN PLACE, CL IN REACH
--- NOTE | 2016-12-16 23:39 | NUR ---
RESTING WITH EYES CLOSED, RESP WITH EASE, NO DISTRESS NOTED, FALL PRECAUTIONS IN PLACE, CL IN REACH
[2016-12-17] VITALS: BP 147/68
--- NOTE | 2016-12-17 04:30 | NUR ---
BLOOD DRAWN FOR ORDERED LABS FROM PORT, 10 CC WASTED, FLUSHED WITH 10 CC NS AFTER DRAW, ARIANNA WELL
[2016-12-17 04:40] LABS: HEMATOCRIT 27.2 % (36.0-48.0); HEMOGLOBIN 8.5 g/dL (12-16); MCH 29.9 pg (26.0-34.0); MCHC 31.3 g/dL (31.0-37.0); MCV 95.8 fL (80.0-100.0); RBC 2.84 10x6/uL (4.00-5.40); RDW 18.6 % (11.5-14.5)
[2016-12-17 04:41] LABS: PLATELET COUNT 36 10x3/uL (130-400)
[2016-12-17 04:51] LABS: CALC OSMOLALITY 293 mosm/kg (275-300); CALCIUM 8.2 mg/dL (8.5-10.1); CHLORIDE - SERUM 105 mmol/L (98-107); CREATININE - SERUM 0.4 mg/dL (0.6-1.3); GLUCOSE 104 mg/dL (74-106); SODIUM 148 mmol/L (136-145); UREA NITROGEN 13 mg/dL (7-18); eGFR NON AFRICAN AMERICAN > 90 mL/min (90-120)
[2016-12-17 04:56] LABS: CARBON DIOXIDE 42.2 mmol/L (21.0-32.0); POTASSIUM - SERUM 2.7 mmol/L (3.5-5.1)
[2016-12-17 05:27] LABS: EOSINOPHILS 2 % (0-7); LYMPHOCYTES 23 % (15-50); MONOCYTES 6 % (2-11); NEUTROPHILS 53 % (40-80)
[2016-12-17 05:28] LABS: PLATELET ESTIMATE DECREASED
--- NOTE | 2016-12-17 06:20 | NUR ---
DR MELO INFORMED OF CRITICAL LAB VALUES, ELECTROLYTE PROTOCOL ORDERED.
--- NOTE | 2016-12-17 07:34 | NUR ---
PATIENT IS RESTING QUIETLY IN BED WITH HER EYES CLOSED. NO S/S OF DISTRESS NOTED. CALL LIGHT IN PATIENT'S REACH. WILL MONITOR PATIENT.
[2016-12-17 07:41] VITALS: BP 149/60
[2016-12-17 08:49] VITALS: BP 149/68
--- NOTE | 2016-12-17 09:01 | NUR ---
PATIENT RESTING IN BED. ASSESSMENT COMPLETED. SEE FLOWSHEET FOR DETAILS. SCHEDULED MORNING MEDICATIONS GIVEN TO PATIENT. PATIENT TAKES HER MEDICATIONS CRUSHED AND IN APPLESAUCE. PATIENT SWALLOWED HER MEDICATIONS WITHOUT ANY DIFFICULTIES NOTED. LEFT UPPER CHEST INFUSAPORT PATENT WITH DRESSING C/D/I. TELEMETRY IN PLACE AND SHOWING SINUS TACHYCARDIA WITH A RATE OF 109. PATIENT DENIES NEEDS AT PRESENT TIME. CALL LIGHT IN PATIENT'S REACH. WILL MONITOR PATIENT.
[2016-12-17 13:11] VITALS: BP 128/60
[2016-12-17 16:32] VITALS: BP 127/54
[2016-12-17 20:00] VITALS: BP 120/67
--- NOTE | 2016-12-18 00:01 | NUR ---
PT IS AWAKE AND GETTING SET UP FOR A BED BATH WITH THE SIGNAL TECHNICIAN. SHE IS ALERT AND ORIENTED, ABLE TO VERBALIZE NEEDS. NO DISTRESS IS NOTED. THE BED IS LOW, RAILS UP X'S 2 WITH THE CALL LIGHT AT HAND.
[2016-12-18 01:00] VITALS: BP 144/61
[2016-12-18 08:12] VITALS: BP 154/80
[2016-12-18 08:46] LABS: CALC OSMOLALITY 289 mosm/kg (275-300); CHLORIDE - SERUM 107 mmol/L (98-107); CREATININE - SERUM 0.4 mg/dL (0.6-1.3); GLUCOSE 77 mg/dL (74-106); SODIUM 147 mmol/L (136-145); UREA NITROGEN 11 mg/dL (7-18); eGFR NON AFRICAN AMERICAN > 90 mL/min (90-120)
[2016-12-18 08:55] LABS: HEMOGLOBIN 10.5 g/dL (12-16); MCH 29.8 pg (26.0-34.0); MCHC 31.8 g/dL (31.0-37.0); MCV 93.8 fL (80.0-100.0); RBC 3.52 10x6/uL (4.00-5.40); RDW 17.9 % (11.5-14.5); WBC 35.1 10x3/uL (4.8-10.8)
[2016-12-18 09:01] LABS: PLATELET COUNT 30 10x3/uL (130-400)
[2016-12-18 09:21] LABS: EOSINOPHILS 7 % (0-7); LYMPHOCYTES 15 % (15-50); MONOCYTES 4 % (2-11); NEUTROPHILS 60 % (40-80); PLATELET ESTIMATE DECREASED
--- NOTE | 2016-12-18 09:58 | NUR ---
MEDS GIVEN PER MAR, TYLENOL GIVEN FOR PAIN IN BACK AND BOTTOM, COMPLAINS OF TO MANY LOOSE STOOLS, DIFFICULTY CATCHING BREATH O2 97%, BREATHING SHALLOW CALL LIGHT IN REACH, BED LOWEST POSITION, SIDE RAILS UP X3,
--- NOTE | 2016-12-18 11:35 | NUR ---
PATIENT IS AWAKE, ALERT AND ORIENTED X'S 4. RESPIRATIONS ARE EVEN AND UNLABORED ON 1L/MIN OF OXYGEN VIA NASAL CANNULA. PATIENT STATED "I CAN'T BREATH. I AM SHORT OF BREATH. I CAN'T SLEEP. I AM WEAK. I HAVE DIARRHEA." FASHION ADVISER STATED SHE HAS CLEANED PATIENT UP FROM DIARRHEA 8 TIMES TODAY. PATIENT HAS CONTINUOUS PULSE OX ON, OXYGEN SATURATION IS 94%. BED IS IN LOWEST POSITION, CALL LIGHT IN REACH. NO SIGNS OF RESPIRATORY DISTRESS NOTED.
[2016-12-18 12:03] VITALS: BP 132/68
[2016-12-18 21:00] VITALS: BP 102/57
--- NOTE | 2016-12-18 23:01 | NUR ---
TELEMETRY REPORTED HEART RATE AT 158BPM. EMMY (DIGITAL PRESS OPERATOR) WAS CALLED AND INFORMED OF RATE AND THE ATTENDING M.D. FOR THE PATIENT. SHE CHECKED AND THE HR DROPPED TO 119
[2016-12-19] VITALS: BP 114/66
--- NOTE | 2016-12-19 02:01 | NUR ---
RESTING WITH EYES CLOSED, RESP WITH EASE, NS INFUSING THROUGH L CHEST PORT WITH EASE, FALL PRECAUTIONS IN PLACE, CL IN REACH
--- NOTE | 2016-12-19 03:08 | NUR ---
PATIENT SLEEPING ON HER RIGHT SIDE, 2 FOAM BANGAGES ON HER BACK TO PROTECT HER SPINE. IV INFUSING AT 10ML/HR THROUGH HER INFUSAPORT. 2LPM O2 VIA NC. LINEN CHANGED DUE TO INCONT OF URINE. NO NEEDS NOTED AT THIS TIME.
[2016-12-19 04:00] VITALS: BP 140/67
[2016-12-19 06:26] LABS: HEMATOCRIT 34.2 % (36.0-48.0); HEMOGLOBIN 10.7 g/dL (12-16); MCH 29.2 pg (26.0-34.0); MCHC 31.3 g/dL (31.0-37.0); MCV 93.2 fL (80.0-100.0); PLATELET COUNT 23 10x3/uL (130-400); RBC 3.67 10x6/uL (4.00-5.40); RDW 17.8 % (11.5-14.5)
[2016-12-19 06:55] LABS: ANISOCYTOSIS OCC; BASOPHILS 1 % (0.0-2.0); EOSINOPHILS 6 % (0-7); LYMPHOCYTES 10 % (15-50); MONOCYTES 8 % (2-11); NEUTROPHILS 58 % (40-80); PLATELET ESTIMATE DECREASED
--- NOTE | 2016-12-19 07:20 | NUR ---
PATIENT RECEIVED IN RIGHT LATERAL POSITION RESTING QUIETLY. RESPIRATIONS EVEN AND UNLABORED. SIDE RAILS UP X2. BED IN LOW POSITION. CALL LIGHT IN REACH. ONELIA ALARM ON.
--- NOTE | 2016-12-19 08:00 | NUR ---
change to 1 view chest per nurse/pt to weak to stand and go to radiology
--- NOTE | 2016-12-19 08:34 | NUR ---
PATIENT ALERT IN BED EATING BREAKFAST. SCHEDULED MEDICATION ADMINISTERED WELL PRN ULTRACET. SIDE RAILS UP X2. BED IN LOW POSITION. CALL LIGHT IN REACH. ONELIA ALARM ON. DENIES FURTHER NEEDS.
[2016-12-19 08:37] VITALS: BP 140/64
--- NOTE | 2016-12-19 10:49 | NUR ---
SITTING UP IN CHAIR AT BEDSIDE ALERT. NO SIGNS OF DISTRESS NOTED. DENIES NEEDS. CALL LIGHT IN REACH.
[2016-12-19 12:30] VITALS: BP 101/74
--- NOTE | 2016-12-19 12:50 | NUR ---
SITTING UP IN CHAIR ALERT. SCHEDULED MEDICATION ADMINISTERED. DENIES NEEDS. CALL LIGHT IN REACH.
--- NOTE | 2016-12-19 16:00 | NUR ---
PATIENT SITTING UP IN CHAIR ALERT VISITING WITH FAMILY. NO SIGNS OF DISTRESS NOTED. CALL LIGHT IN REACH.
[2016-12-19 16:53] VITALS: BP 121/61
--- NOTE | 2016-12-19 18:30 | NUR ---
ALERT IN BED. SCHEDULED MEDICATION ADMINISTERED. ZOFRAN ADMINISTERED PER PRN ORDER. NO FURTHER NEEDS VOICED. SIDE RAILS UP X2. BED IN LOW POSITION. CALL LIGHT IN REACH.
[2016-12-19 20:00] VITALS: BP 126/51
[2016-12-20 04:00] VITALS: BP 146/68
--- NOTE | 2016-12-20 05:30 | NUR ---
RESTING WITH EYES CLOSED, RESP WITH EASE, NO ACUTE DISTRESS NOTED, FALL PRECAUTIONS IN PLACE, CL IN REACH
--- NOTE | 2016-12-20 07:10 | NUR ---
PATIENT RECEIVED IN MID FIG[place]EROA POSITION RESTING WITH EYES CLOSED. RESPIRATIONS EVEN AND UNLABORED. SIDE RAILS UP X2. BED IN LOW POSITION. CALL LIGHT IN REACH. ONELIA ALARM ON.
[2016-12-20 07:57] LABS: MCH 29.4 pg (26.0-34.0); MCHC 30.3 g/dL (31.0-37.0); MCV 97.1 fL (80.0-100.0); PLATELET COUNT 28 10x3/uL (130-400); RDW 18.2 % (11.5-14.5); WBC 37.8 10x3/uL (4.8-10.8)
[2016-12-20 08:18] LABS: CALC OSMOLALITY 290 mosm/kg (275-300); CALCIUM 8.2 mg/dL (8.5-10.1); CHLORIDE - SERUM 105 mmol/L (98-107); CREATININE - SERUM 0.3 mg/dL (0.6-1.3); GLUCOSE 78 mg/dL (74-106); MAGNESIUM - SERUM 1.5 mg/dL (1.8-2.4); PHOSPHOROUS 3.2 mg/dL (2.5-4.9); PRO BNP 2300 pg/mL (0-450); SODIUM 147 mmol/L (136-145); UREA NITROGEN 13 mg/dL (7-18); eGFR NON AFRICAN AMERICAN > 90 mL/min (90-120)
[2016-12-20 08:35] VITALS: BP 140/55; BP 145/89
--- NOTE | 2016-12-20 08:40 | NUR ---
C/O NAUSEA. ZOFRAN ADMINISTERED PER PRN ORDER. POTASSIUM AND MAG RIDERS INITIATED PER ELECTROLYTE PROTOCOL. DENIES FURTHER NEEDS. SIDE RAILS UP X2. BED IN LOW POSITION. CALL LIGHT IN REACH.
[2016-12-20 09:00] LABS: EOSINOPHILS 3 % (0-7); LYMPHOCYTES 13 % (15-50); MONOCYTES 7 % (2-11); NEUTROPHILS 59 % (40-80); PLATELET ESTIMATE DECREASED; STOMATOCYTES OCC
[2016-12-20 09:01] LABS: ANISOCYTOSIS 1+; SPHEROCYTES OCC
--- NOTE | 2016-12-20 09:30 | NUR ---
PATIENT CONTINUES TO C/O NAUSEA AND REFUSES SCHEDULED MEDICATION AT THIS TIME. WILL ATTEMPT TO ADMINISTERED MEDICATION AT LATER TIME PATIENT TOLERATES. SIDE RAILS UP X2. BED IN LOW POSITION. CALL LIGHT IN REACH. ONELIA ALARM ON.
--- NOTE | 2016-12-20 10:27 | NUR ---
SCHEDULED MEDICATION ADMINISTERED. WELL TOLERATED. DENIES NEEDS. SIDE RAILS UP X2. BED IN LOW POSITION. CALL LIGHT IN REACH. ONELIA ALARM ON.
[2016-12-20 13:25] VITALS: BP 127/51
--- NOTE | 2016-12-20 14:40 | NUR ---
C/O PAIN 07/18. ULTRACET ADMINISTERED PER PRN ORDER. NO FURTHER NEEDS VOICED. FAMILY PRESENT. SIDE RAILS UP X2. BED IN LOW POSITION. CALL LIGHT IN REACH. ONELIA ALARM ON.
--- NOTE | 2016-12-20 15:33 | NUR ---
NUTRITION MONITORING & EVAL CHART REVIEWED. PT VISIT. TOLERATING REG DIET WITH ENSURE. ~50% INTAKE RECENT MEALS. WILL CONTINUE TO PROVIDE DIET, HONOR FOOD PREFERENCES. RD FOLLOWING
--- NOTE | 2016-12-20 16:59 | NUR ---
PATIENT ALERT IN HIGH FIGUEROA POSITION WATCHING TV. RESPIRATIONS EVEN AND UNLABORED. SIDE RAILS UP X2. BED IN LOW POSITION. CALL LIGHT IN REACH.
[2016-12-20 17:41] VITALS: BP 119/55
--- NOTE | 2016-12-20 19:49 | NUR ---
rec'd. in bed eyes closed resp. deep and even.will continue to monitor for any chges. and follow current plan of care
[2016-12-20 20:00] VITALS: BP 115/48
[2016-12-21] VITALS: BP 130/58
[2016-12-21 04:12] VITALS: BP 157/62
[2016-12-21 06:36] LABS: POTASSIUM - SERUM 3.9 mmol/L (3.5-5.1)
--- NOTE | 2016-12-21 07:15 | NUR ---
REPORT RECEIVED FROM JAVA TECH NURSE. CALL LIGHT IN REACH.
--- NOTE | 2016-12-21 07:48 | NUR ---
ASSESSMENT COMPLETED. REFUSES SCDs. ONELIA MAT ALARM IS ON. CALL LIGHT IN REACH. WILL CONTINUE WITH PLAN OF CARE.
[2016-12-21 08:20] VITALS: BP 137/63
--- NOTE | 2016-12-21 09:14 | NUR ---
PATIENT SITTING UP IN CHAIR AT THIS TIME. NO COMPLAINTS OR SIGNS OF DISTRESS. IV INTACT. CALL LIGHT WITHIN REACH.
--- NOTE | 2016-12-21 09:54 | NUR ---
AM MEDS ADMINISTERED. CALL LIGHT IN REACH.
--- NOTE | 2016-12-21 11:40 | NUR ---
IN BED WITH EYES CLOSED. RESP EVEN AND UNLABORED. CALL LIGHT IN REACH.
[2016-12-21 12:28] VITALS: BP 96/79
--- NOTE | 2016-12-21 13:42 | NUR ---
DENIES NEEDS AT THIS TIME. CALL LIGHT IN REACH.
[2016-12-21 15:47] VITALS: BP 119/53
--- NOTE | 2016-12-21 15:48 | NUR ---
DR. RODARTE ORDERED PER PATIENT REQUEST.
--- NOTE | 2016-12-21 17:57 | NUR ---
DAUGHTER BROUGHT SUPPER FOR PATIENT SO SHE REFUSED HER DINNER TRAY.
--- NOTE | 2016-12-21 18:17 | NUR ---
NO CHANGES IN INIITIAL ASSESSMENT. STILL REFUSES SCDs. ONELIA MAT ALARM ON. CALL LIGHT IN REACH. WILL CONTINUE WITH PLAN OF CARE.
--- NOTE | 2016-12-21 18:56 | NUR ---
[facility] DRSG CHANGED USING STERILE TECHNIQUE. REFUSED NEEDLE CHANGE.
--- NOTE | 2016-12-21 19:00 | NUR ---
PATIENT IN BED WATCHING TV. HOB 40 DEGREES. AAOX4. RR EVEN AND UNLABORED. O2 @ 2L VIA NC. 0 S/S OF DISTRESS. STATES PAIN IS A 10/10. IV TO LEFT PORT PATENT WITH NO REDNESS OR SWELLING. DRESSINGS TO LEFT ANKLE AND BACK CDI. ONELIA ALARM ON. SRX3. BED LOW. CALL LIGHT WITHIN REACH.
[2016-12-21 20:00] VITALS: BP 124/61
--- NOTE | 2016-12-21 22:15 | NUR ---
ASSESSMENT COMPLETE. NIGHTTIME MEDS GIVEN. ULTRACET GIVEN FOR PAIN. CHANGED BRIEF AND LINENS. APPLIED BUTT PASTE TO BUTTOCKS. REPOSITIONED PATIENT.
[2016-12-22] VITALS: BP 134/58
--- NOTE | 2016-12-22 01:21 | NUR ---
PATIENT SLEEPING WITH NO DISTRESS NOTED. CALL LIGHT WITHIN REACH.
[2016-12-22 04:00] VITALS: BP 125/55
[2016-12-22 06:25] LABS: CALC OSMOLALITY 279 mosm/kg (275-300); CALCIUM 7.8 mg/dL (8.5-10.1); CHLORIDE - SERUM 102 mmol/L (98-107); CREATININE - SERUM 0.3 mg/dL (0.6-1.3); POTASSIUM - SERUM 3.5 mmol/L (3.5-5.1); SODIUM 142 mmol/L (136-145); UREA NITROGEN 11 mg/dL (7-18); eGFR NON AFRICAN AMERICAN > 90 mL/min (90-120)
[2016-12-22 06:32] LABS: GLUCOSE 66 mg/dL (74-106)
[2016-12-22 06:38] LABS: BASOPHILS 0.4 % (0.0-2.0); EOSINOPHILS 5.2 % (0-7); HEMATOCRIT 29.1 % (36.0-48.0); HEMOGLOBIN 9.1 g/dL (12-16); IMMATURE GRANULOCYTES 12.6 % (0-5); LYMPHOCYTES 4.1 % (15-50); MCHC 31.3 g/dL (31.0-37.0); MONOCYTES 10.9 % (2-11); NEUTROPHILS 66.8 % (40-80); RBC 3.03 10x6/uL (4.00-5.40); WBC 21.8 10x3/uL (4.8-10.8)
[2016-12-22 06:40] LABS: PLATELET COUNT 19 10x3/uL (130-400)
--- NOTE | 2016-12-22 07:15 | NUR ---
REPORT RECEIVED FROM COOLING SYSTEM OPERATOR NURSE. CALL LIGHT IN REACH.
--- NOTE | 2016-12-22 07:20 | NUR ---
SPOKE WITH DR. MELO ABOUT CRITICAL PLATELETS. STATED TO CALL DR. FORBES. SPOKE WITH DR. ALBARRAN'S ANSWERING SERVICE.
[2016-12-22 08:15] VITALS: BP 127/59
--- NOTE | 2016-12-22 08:40 | NUR ---
ASSESSMENT COMPLETED. REFUSES SCDs. CALL LIGHT IN REACH. WILL CONTINUE WITH PLAN OF CARE.
--- NOTE | 2016-12-22 10:35 | NUR ---
PAIN PILL ADMINISTERED WITH 2 OTHER MEDS. REFUSED THE OTHERS. KCL 2ND BAG INITIATED.
--- NOTE | 2016-12-22 12:20 | NUR ---
NO NEEDS VOICED AT THIS TIME. CALL LIGHT IN REACH.
[2016-12-22 12:31] VITALS: BP 90/47
--- NOTE | 2016-12-22 14:12 | NUR ---
QUIET IN ROOM AT PRESENT HOB UP FOR COMFORTWATCHING TV.
--- NOTE | 2016-12-22 15:07 | NUR ---
ULTRACET PO PER C/O PAIN OF 10.
[2016-12-22 16:02] VITALS: BP 134/60
--- NOTE | 2016-12-22 16:25 | NUR ---
PLATELETS INITIATED. VS..
--- NOTE | 2016-12-22 16:50 | NUR ---
COMPLETE PLATELETS. VSS.
--- NOTE | 2016-12-22 17:25 | NUR ---
NICOLE XANAX AND NYSTATIN PO. CALL LIGHT IN [facility].
--- NOTE | 2016-12-22 18:30 | NUR ---
NO CHANGES IN INITIAL ASSESSMENT. CALL LIGHT IN REACH. WILL COMTINUE WITH PLAN OF CARE.
--- NOTE | 2016-12-22 19:00 | NUR ---
BEDSIDE REPORT RECEIVED AND CARE OF PT ASSUMED. PT LYING IN SEMI FIGUEROA'S POSITION WATCHING TV. LEFT PORT ACCESSED AND SALINE LOCKED. O2 IN USE AT 2L VIA NC. WILL MONITOR CLOSLEY FOR NEEDS.
[2016-12-22 20:00] VITALS: BP 120/53
--- NOTE | 2016-12-22 20:45 | NUR ---
HS MEDICATIONS GIVEN TO INCLUDE ATIVAN AND NORCO FOR ANXIETY / SLEEP, AND PAIN AT LEVEL 5/10. WILL MONITOR FOR EFFECTIVENESS. SIDE RAILS UP X2 FOR SAFETY.
--- NOTE | 2016-12-22 22:36 | NUR ---
CHANGED BRIEF DUE TO INCONTINENCE EPISODE. RFANKLYN CARE PERFORMED AND APPLIED PRUDENCE'S PASTE TO COCCYX AREA. POSITIONED ONTO LEFT SIDE PROPPED WITH PILLOWS. WILL CONTINUE TO MONITOR FOR NEEDS. CALL LIGHT WITHIN REACH.
[2016-12-23 04:33] VITALS: BP 142/79
--- NOTE | 2016-12-23 05:30 | NUR ---
ED BLOOD FROM PORT FOR AM LABS. DELIVERED TO DETAIL MAKER AND FITTER. PORT FLUSHES AND DRAWS WELL.
--- NOTE | 2016-12-23 06:19 | NUR ---
ALL NEEDS MET DURING SHIFT. PT RESTED WELL OVERNIGHT. CONTINUE PLAN OF CARE.
[2016-12-23 06:59] LABS: CALCIUM 7.7 mg/dL (8.5-10.1); CARBON DIOXIDE 39.1 mmol/L (21.0-32.0); CHLORIDE - SERUM 99 mmol/L (98-107); SODIUM 141 mmol/L (136-145); UREA NITROGEN 9 mg/dL (7-18)
[2016-12-23 07:04] LABS: CALC OSMOLALITY 277 mosm/kg (275-300); CREATININE - SERUM 0.2 mg/dL (0.6-1.3); GLUCOSE 62 mg/dL (74-106); POTASSIUM - SERUM 4.3 mmol/L (3.5-5.1); eGFR NON AFRICAN AMERICAN > 90 mL/min (90-120)
--- NOTE | 2016-12-23 07:30 | NUR ---
RECIEVED PT DURING WALKING ROUNDS. PT RESTING IN BED WITH COMPLAINTS OF DISCOMFORT R/T HER POSITION IN THE BED, STATED THAT SHE KEEPS SWITCHING POSITIONS TO KEEP FROM GETTING SORE. ASSESSMENT DONE PER FLOWSHEET. BED IN LOW POSITION AND CALL LIGHT WITHIN REACH. WILL CONTINUE TO MONITOR.
[2016-12-23 07:48] LABS: HEMATOCRIT 29.8 % (36.0-48.0); HEMOGLOBIN 9.4 g/dL (12-16); MCH 29.8 pg (26.0-34.0); MCHC 31.5 g/dL (31.0-37.0); MCV 94.6 fL (80.0-100.0); RBC 3.15 10x6/uL (4.00-5.40); RDW 17.9 % (11.5-14.5); WBC 23.4 10x3/uL (4.8-10.8)
[2016-12-23 07:49] LABS: BASOPHILS 0.4 % (0.0-2.0); IMMATURE GRANULOCYTES 13.2 % (0-5); LYMPHOCYTES 5.1 % (15-50); MONOCYTES 9.2 % (2-11); NEUTROPHILS 66.1 % (40-80); PLATELET COUNT 34 10x3/uL (130-400)
--- NOTE | 2016-12-23 08:00 | NUR ---
LYING IN BED,WITHOUT DISTRESS.FALL PREVENTION IN PLACE.DOOR OPEN TO [facility]
[2016-12-23 08:31] VITALS: BP 164/76
[2016-12-23] MEDS ORDERED: PREDNISONE20 MG PO (08:43)
[2016-12-23] MEDS ORDERED: HYDROCODONE-APA1 TAB PO (08:44)
[2016-12-23] MEDS ORDERED: DURAGESIC1 PATCH .7 TRANSDERM (08:44)
--- NOTE | 2016-12-23 09:50 | NUR ---
ADMINISTERED PRN PAIN MEDICATION AT THIS TIME DUE TO PT COMPLAINTS OF PAIN IN HER BACK OF A 10 ON A SCALE OF 1-10. WILL CONTINUE TO MONITOR.
--- NOTE | 2016-12-23 09:52 | NUR ---
CM REASSESSMENT NOTE: CM SPOKE WITH DAUGHTER (JOANN SALES) REGARDING HER MOTHER BEING DISCHARGED BACK TO [place] [facility]. DAUGHTER AGREED TO THE DISCHARGE PLAN. REFERRAL HAS BEEN SENT TO [facility]. CM WILL CONTINUE TO FOLLOW PATIENT WITH D/C NEEDS AND PLANS. JOANN SALES (DAUGHTER) [phone] [facility]- [phone]
--- NOTE | 2016-12-23 10:55 | NUR ---
PT STATES PAIN HAS DECREASED TO A 7 ON A SCLAE OF 1-10. TURNED PT TO INCREASE COMFORT. BED IN LOW POSITION AND CALL LIGHT WITHIN REACH. WILL CONTINUE TO MONITOR.
[2016-12-23 12:34] VITALS: BP 154/69
--- NOTE | 2016-12-23 13:30 | NUR ---
REPORT CALLED TO [facility] TO TATIANA LUTZ LPN AT THIS TIME. PT WILL BE DISCHARGED VIA AMBULANCE.
--- NOTE | 2016-12-23 14:45 | NUR ---
PT DISCHARGED TO [facility] VIA AMBULANCE AT THIS TIME.
--- NOTE | 2016-12-30 13:49 | CN ---
PATIENT NAME:BONNY HERNÁNDEZ MEDICAL RECORD: [id number] : 37 LOCATION:[id number] ADMIT DATE: 12/13/16 ACCOUNT: [id number] CONSULTING PHYSICIAN: PRISCA ANGEL MD REFERRING PHYSICIAN: SHANNAN SCHMIDT MD DATE OF CONSULTATION: 12/14/2016 CONSULT REQUESTING PHYSICIAN: Shannan Schmidt MD. REASON FOR CONSULTATION: Pneumonia, right lower lobe. HISTORY OF PRESENT ILLNESS: Ms. Hernández is an 81-year-old female who has pneumonia in the left lower lobe in September. She did well and then she got pneumonia in the right lower lobe and was on some oral antibiotic in the rehab, but the patient was not getting any better. She was admitted with a significant leukocytosis and a nonresolving pneumonia in the right lower lobe. The patient is having a cough without significant shortness of breath. Denies any chest pain. REVIEW OF SYSTEMS: Mainly in the history of present illness. PAST MEDICAL HISTORY: 1. History of myelofibrosis, followed by Dr. Holbrook. She has a thrombocytopenia and anemia. 2. History of systemic lupus erythematosus followed by Dr. Blanca. 3. Hypertension. 4. Hypothyroidism. 5. Coronary artery disease. 6. History of cerebrovascular accident. PAST SURGICAL HISTORY: 1. She had a CABG in the past. 2. Left hip replacement. 3. Right ankle surgery. 4. Left knee surgery. ALLERGIES: There are no known drug allergies. PRESENT MEDICATIONS: She is on Levaquin IV, prednisone 5 mg a day and levothyroxine, folic acid. Her other medication is reviewed. PERSONAL AND SOCIAL HISTORY: The patient never smoked. She is a nondrinker. FAMILY HISTORY: Significant for neurological and cardiovascular diseases. PHYSICAL EXAMINATION: GENERAL: Now, the patient is lying comfortably in bed. She is not in acute distress. VITAL SIGNS: The blood pressure is 114/46, pulse is 125, respirations 18, temperature 98.4, SPO2 95% on a 3 liter nasal cannula. HEENT: Conjunctivae are pink, sclerae nonicteric. NECK: Supple, no JVD. CHEST: There are crackles at the right base. No wheezing. HEART: Rhythm regular, normal sound, no murmur. ABDOMEN: Soft, bowel sounds present. No hepatosplenomegaly. CONSULT REPORT [id number] BONNY HERNÁNDEZ Maya RECTAL: Deferred. EXTREMITIES: No cyanosis, no clubbing, no pedal edema. SKIN: Warm, normal turgor. CENTRAL NERVOUS SYSTEM: The patient is awake and alert. There are no obvious cranial nerve abnormality. The patient is very emaciated. LABORATORY DATA: CBC: WBC 44.7, platelet, hemoglobin 9.1, hematocrit 30.3, the platelet count is 36. Chemistry: Sodium 145, potassium 3.8, BUN is 11, creatinine 0.4. IMPRESSION: 1. Pneumonia, right lower lobe, most likely hospital-acquired pneumonia with the patient recent hospitalization, possible aspiration. 2. Systemic lupus erythematosus, followed by Dr. Blanca. She is on Plaquenil. 3. Severe pulmonary hypertension, PA pressure of 62. 4. Myelofibrosis with associated anemia, thrombocytopenia and leukocytosis. 5. Hypertension. 6. History of cerebrovascular accident. 7. Thrombocytopenia. 8. Leukocytosis. RECOMMENDATION: 1. Continue Levaquin. I will add Zosyn to cover for aspiration pneumonia and check the CT scan of the chest, give her stress dose of steroid, hold the p.o. prednisone. 2. Supplemental oxygen as required. 3. Albuterol ipratropium nebulizer. Dr. Schmidt, once again thanks for involving me in the care of Ms. Hernández. TRANSINT:[id number] Voice Confirmation ID: [id number] DOCUMENT ID: [id number] PRISCA ANGEL MD at 1349 CC: SHANNAN SCHMIDT MD [id number] DICTATION DATE: 12/14/16 1255 PHARM TECH: 12/14/[id number] DIS IN 12/23/16 [facility] [address] [facility] [place] [address]
--- NOTE | 2017-02-07 07:02 | DS ---
PATIENT:BONNY HERNÁNDEZ :37 MEDICAL RECORD: [id number] DISCHARGE SUMMARY ADMISSION DATE: 12/13/16 DISCHARGE DATE: 12/23/16 DATE OF ADMISSION: 12/13/2016 DATE OF DISCHARGE: 12/23/2016 ADMITTING DIAGNOSIS: Unspecified bacterial pneumonia. PRINCIPAL DIAGNOSIS: Unspecified bacterial pneumonia. 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 CONSULTATIONS: Cardiology, Dr. Suarez; pulmonology, Dr. Vallejo, and speech therapy for swallow evaluation. PROCEDURES: The patient had a swallow evaluation. HOSPITAL COURSE: The patient improved with therapy over the course of her hospital stay. The patient was discharged back to long term on hospice by Dr. Smith. For the patient's discharge medications, please refer to the patient's discharge medication reconciliation. TRANSINT:[id number] Voice Confirmation ID: [id number] DOCUMENT ID: [id number] SHANNAN SCHMIDT MD at 0702 CC: [id number] DICTATION DATE: 02/06/17 1345 SALES AND MARKETING ANALYST: 02/07/17 0318 DIS IN 12/23/16 [place] [id number] [place] [id number]
== END 2016-12-23 15:14 | disposition home health service (06) | DRG 178 ==
LOC: D.ER 10:13 → D.MS 13:52
PROVIDERS: Emergency Medicine; Family Medicine; Internal Medicine Medical Oncology; Internal Medicine Pulmonary Disease; ADMIT Family Medicine
DX: J69.0 Pneumonitis due to inhalation of food and vomit (principal); E44.0 Moderate protein-calorie malnutrition; Z68.1 Body mass index [BMI] 19.9 or less, adult; I69.354 Hemiplegia and hemiparesis following cerebral infarction affecting left non-dominant side; D75.81 Myelofibrosis; M32.9 Systemic lupus erythematosus, unspecified; D46.9 Myelodysplastic syndrome, unspecified; D69.6 Thrombocytopenia, unspecified; I48.91 Unspecified atrial fibrillation; I10 Essential (primary) hypertension; K21.9 Gastro-esophageal reflux disease without esophagitis; E03.9 Hypothyroidism, unspecified; I25.2 Old myocardial infarction; R00.0 Tachycardia, unspecified; I27.2 Other secondary pulmonary hypertension